=== PATIENT | male | born 1960 | race Caucasian/White ===

== ENCOUNTER 2017-02-18 08:49 | Emergency (ER) | payer BC ==
[~2017-02-18] VITALS: Ht 180.3 cm; Wt 87.6 kg
[~2017-02-18 08:49] MED LIST: APRESOLINE25 MG PO; CIPRO500 MG PO; COLACE100 MG PO; FLOMAX0.4 MG PO; LIPITOR40 MG PO; MEVACOR10 M1 PO; MEVACOR20 MG PO; MOTRIN600 MG PO; NAPROXEN500 MG PO; OXAYDO5 MG PO; PERCOCET 5/31 TABLET PO; PREDNISONE20 MG PO; PRINIVIL10 MG PO; RANITIDINE HCL150 MG PO; ZOFRAN ODT8 MG PO
[2017-02-18] MEDS ORDERED: MEDROL DOSEPAK4 MG PO (14:45)
[2017-02-18] MEDS ORDERED: PERCOCET 5/31 TABLET PO (14:45)
[2017-02-18 15:02] VITALS: BP 133/81
[2017-02-19] MEDS ORDERED: MORPHINE SULFAT15 MG PO (23:03)
[2017-02-19] MEDS ORDERED: ZOFRAN4 MG PO (23:05)
== END 2017-02-18 15:03 | disposition home or self-care (01) ==
LOC: EME 08:49
DX: M51.26 Other intervertebral disc displacement, lumbar region (principal); M48.06 Spinal stenosis, lumbar region; M51.37 Other intervertebral disc degeneration, lumbosacral region; M25.551 Pain in right hip; R20.0 Anesthesia of skin; M25.561 Pain in right knee; W01.0XXA Fall on same level from slipping, tripping and stumbling without subsequent striking against object, initial encounter
CPT/HCPCS: 72158; 73502; 99281; 99284; J1885

== ENCOUNTER 2017-02-19 20:05 | Emergency (ER) | payer BC ==
[~2017-02-19] VITALS: Ht 180.3 cm; Wt 84.1 kg
[~2017-02-19 20:05] MED LIST changes: +MEDROL DOSEPAK4 MG PO
[2017-02-19 21:25] LABS: HEMATOCRIT 43.9 % (38.0-50.0); MCH 29.8 PG (29.0-34.0); MCHC 34.6 G/DL (30.0-36.0); MCV 86.1 FL (86-99); MEAN PLAT.VOLUME 11.2 uM^3 (9.0-12.4); PLATELET COUNT 147 K/uL (156-360); RBC DIS.WIDTH-CV 12.8 % (11.8-14.6); RBC DIS.WIDTH-SD 40.1 % (39-53); WHITE BLOOD COUNT 10.8 K/uL (4.1-10.2)
[2017-02-19 21:36] LABS: CHLORIDE 103 mEq/L (99-109); POTASSIUM 3.5 mEq/L (3.7-5.4); SODIUM 137 mEq/L (136-147)
[2017-02-19 21:39] LABS: GLUCOSE 102 mg/dL (70-99)
[2017-02-19 21:40] LABS: ANION GAP 10 MEQ/L (2-14); TOTAL BILIRUBIN 1.4 mg/dL (0.0-1.0)
[2017-02-19 21:42] LABS: ALKALINE PHOSPHATASE 53 IU/L (3-129); GFR ESTIMATE (CALCULATED) > 59 mL/min/
[2017-02-19 21:43] LABS: UREA NITROGEN (BUN) 28 mg/dL (9-23)
[2017-02-19 21:46] LABS: LIPASE 49 U/L (1.0-51.0)
[2017-02-19 22:00] LABS: ADD MIUA? NO; BILIRUBIN NEGATIVE; BLOOD NEGATIVE; COLOR YELLOW ((YELLOW)); GLUCOSE (STRIP) NEGATIVE; KETONES NEGATIVE; LEUKOCYTES NEGATIVE; NITRITE NEGATIVE; PROTEIN (STRIP) 30; SPECIFIC GRAVITY 1.026 (1.000-1.030); UCUL ADDED? NO
[2017-02-19] MEDS ORDERED: MORPHINE SULFAT15 MG PO (23:03)
[2017-02-19] MEDS ORDERED: ZOFRAN4 MG PO (23:05)
[2017-02-19 23:14] VITALS: BP 138/81
== END 2017-02-19 23:57 | disposition home or self-care (01) ==
LOC: EME 20:05
PROVIDERS: Physician Assistant
DX: M54.16 Radiculopathy, lumbar region (principal); Z91.81 History of falling; I10 Essential (primary) hypertension
CPT/HCPCS: 74177; 80053; 81003; 83690; 85027; 99281; 99285; J1885; J2270; J2405; J3010